=== PATIENT | female | born 1995 ===

== ENCOUNTER 2021-02-25 21:03 | Inpatient (IN) | payer MEDICAID ==
[~2021-02-25] VITALS: Ht 162.6 cm; Wt 86.0 kg
[2021-02-25 20:24] VITALS: BP 111/60
[2021-02-25 21:14] VITALS: BP 117/68
[2021-02-25] MEDS ORDERED: NEWBORN KIT ONE (21:50)
[2021-02-25] MEDS ORDERED: OXYTOCIN 30U/ 0.9% NaCL 500ML 500 ML ONE (21:50)
[2021-02-25] MEDS ORDERED: LIDOCAINE 1%, 20ML ONE (21:54)
[2021-02-25] MEDS ORDERED: MISOPROSTOL 200 MCG TABLET ONE (21:54)
[2021-02-25] MEDS ORDERED: TERBUTALINE 1 MG/ML, 1ML IVPush PRN (22:00)
[2021-02-25] MEDS ORDERED: FENTANYL PF 100 MCG/2ML IV PRN (22:00)
[2021-02-25] MEDS ORDERED: CALCIUM CARBONATE 500 MG TAB.CHEW PO PRN (22:00)
[2021-02-25] MEDS ORDERED: D5%-LACTATED RINGERS 1,000 ML IV SCH (22:00)
[2021-02-25] MEDS ORDERED: LACTATED RINGERS 1,000 ML IV SCH (22:00)
[2021-02-25] MEDS ORDERED: TERBUTALINE 1 MG/ML, 1ML SQ PRN (22:00)
[2021-02-25] MEDS ORDERED: ONDANSETRON 2MG/ML, 2ML IVPush PRN (22:00)
[2021-02-25] MEDS ORDERED: OXYTOCIN 30U/ 0.9% NaCL 500ML 500 ML IV PRN (22:00)
[2021-02-25] MEDS ORDERED: OXYTOCIN 30U/ 0.9% NaCL 500ML 500 ML IV ONE (22:00)
[2021-02-25] MEDS ORDERED: PENICILLIN GK 5,000,000 UNITS in DEXTROSE 5% 100 ML IVPB ONE (22:00)
[2021-02-25 22:21] LABS: BASOPHILS % (AUTO) 0 % (0-1); EOSINOPHILS % (AUTO) 1 % (1-7); LYMPHOCYTES % (AUTO) 13 % (22-44); MEAN CORPUSCULAR HEMOGLOBIN 29.8 pg (27.0-34.8); MEAN CORPUSCULAR HGB CONC 33.2 g/dL (32.4-35.8); MEAN PLATELET VOLUME 7.9 fL (7.4-10.4); MONOCYTES % (AUTO) 7 % (2-9); NEUTROPHILS % (AUTO) 79 % (42-75); PLATELET COUNT 275 x10^3/uL (130-400); RED BLOOD COUNT 4.11 x10^6/uL (3.82-5.3); RED CELL DISTRIBUTION WIDTH 14.8 % (9.6-15.2)
[2021-02-25] MEDS: FENTANYL PF 100 MCG/2ML IVPush PRN (23:28)
[2021-02-26] MEDS: FENTANYL PF 100 MCG/2ML IVPush PRN (00:23)
[2021-02-26] MEDS: PENICILLIN GK 2,500,000 UNITS in DEXTROSE 5% 100 ML IVPB SCH ×2 (01:28→06:00)
[2021-02-26] MEDS ORDERED: MISOPROSTOL 200 MCG TABLET PR PRN (02:00)
[2021-02-26] MEDS ORDERED: ONDANSETRON 2MG/ML, 2ML IV PRN (02:00)
[2021-02-26] MEDS ORDERED: OXYcodone/APAP 5/325MG TABLET PO PRN (02:00)
[2021-02-26] MEDS ORDERED: METHYLERGONOVINE 0.2 MG/ML IM PRN (02:00)
[2021-02-26] MEDS ORDERED: TRANEXAMIC ACID 1,000 MG in SODIUM CHLORIDE 0.9% 100 ML IVPB ONE (02:00)
[2021-02-26] MEDS ORDERED: CARBOPROST TROMETHAMINE 250 MCG/ML, 1ML IM PRN (02:00)
[2021-02-26] MEDS ORDERED: SIMETHICONE 80 MG CHEW TAB PO PRN (02:00)
[2021-02-26] MEDS: OXYTOCIN 30U/ 0.9% NaCL 500ML 500 ML IV SCH ×3 (02:21→22:00)
[2021-02-26 03:30] VITALS: BP 107/52
[2021-02-26 07:45] VITALS: BP 97/60
[2021-02-26] MEDS: OXYcodone/APAP 5/325MG TABLET PO PRN ×2 (08:04→16:31)
[2021-02-26] MEDS: PRENATAL VIT/IRON/FA 1 EACH TABLET PO SCH (08:05)
[2021-02-26] MEDS: DOCUSATE 100 MG CAPSULE PO PRN ×2 (08:05→19:53)
[2021-02-26] MEDS: IBUPROFEN 600 MG TABLET PO PRN ×2 (08:05→16:27)
[2021-02-26 08:24] LABS: BASOPHILS % (AUTO) 0 % (0-1); EOSINOPHILS % (AUTO) 0 % (1-7); LYMPHOCYTES % (AUTO) 7 % (22-44); MEAN CORPUSCULAR HEMOGLOBIN 30.3 pg (27.0-34.8); MEAN CORPUSCULAR HGB CONC 33.7 g/dL (32.4-35.8); MEAN PLATELET VOLUME 7.9 fL (7.4-10.4); MONOCYTES % (AUTO) 6 % (2-9); NEUTROPHILS % (AUTO) 87 % (42-75); PLATELET COUNT 282 x10^3/uL (130-400); RED BLOOD COUNT 4.03 x10^6/uL (3.82-5.3); RED CELL DISTRIBUTION WIDTH 14.5 % (9.6-15.2)
[2021-02-26 12:32] VITALS: BP 95/51
[2021-02-26 16:31] VITALS: BP 104/59
[2021-02-26 20:00] VITALS: BP 91/50
[2021-02-27 00:27] VITALS: BP 98/61
[2021-02-27] MEDS: OXYTOCIN 30U/ 0.9% NaCL 500ML 500 ML IV SCH ×2 (02:54→18:00)
[2021-02-27 04:16] VITALS: BP 106/65
[2021-02-27 08:12] VITALS: BP 107/64
[2021-02-27] MEDS: IBUPROFEN 600 MG TABLET PO PRN ×2 (11:28→18:33)
[2021-02-27] MEDS: PRENATAL VIT/IRON/FA 1 EACH TABLET PO SCH (11:28)
[2021-02-27] MEDS: DOCUSATE 100 MG CAPSULE PO PRN (11:28)
[2021-02-27] MEDS: OXYcodone/APAP 5/325MG TABLET PO PRN (18:33)
[2021-02-27 20:00] VITALS: BP 109/66
[2021-02-28] MEDS: OXYTOCIN 30U/ 0.9% NaCL 500ML 500 ML IV SCH (04:00)
[2021-02-28 07:28] VITALS: BP 102/60
[2021-02-28] MEDS: IBUPROFEN 600 MG TABLET PO PRN (08:37)
[2021-02-28] MEDS: PRENATAL VIT/IRON/FA 1 EACH TABLET PO SCH (08:37)
[2021-02-28] MEDS ORDERED: IBUP-1222 PO (15:41)
== END 2021-02-28 16:30 | disposition home or self-care (01) | DRG 560 ==
LOC: LDOP 21:03 → LDIP 21:43 → 2NW 02-26 03:26
PROVIDERS: ADMIT Obstetrics & Gynecology; ATTEND Obstetrics & Gynecology
PROC: 10E0XZZ Delivery of Products of Conception, External Approach (ICD-10-PCS; principal; 2021-02-26)
DX: O99.824 Streptococcus B carrier state complicating childbirth (principal); Z20.822 Contact with and (suspected) exposure to COVID-19; Z37.0 Single live birth; Z3A.39 39 weeks gestation of pregnancy
CPT/HCPCS: 36415; 85025; 86592; 86850; 86900; 87635; G0378; J2540; J3010; J2590; J7120